=== PATIENT | male | born 1940 | race Caucasian/White ===

== ENCOUNTER → 2019-05-12 13:27 | Outpatient (CLI) | payer OTHER ==
[~2019-05-12 13:27] MED LIST: FLOMAX0.4 MG PO
[2019-05-16 09:56] VITALS: BMI 22.7
== END | disposition home or self-care (01) ==
LOC: D.LAB 13:27
PROVIDERS: ATTEND Urology
DX: N20.2 Calculus of kidney with calculus of ureter (principal)

== ENCOUNTER 2019-05-16 09:16 | Outpatient (CLI) | payer OTHER ==
[~2019-05-16] VITALS: Ht 177.8 cm; Wt 71.7 kg
[2019-05-16 09:36] LABS: HEMATOCRIT 44.8 % (42.0-54.0); HEMOGLOBIN 15.2 g/dL (13.5-17.5); MCH 30.6 pg (26.0-34.0); MCHC 33.9 g/dL (31.0-37.0); MCV 90.1 fL (80.0-100.0); MEAN PLATELET VOLUME 11.8 fL (7.4-10.4); RBC 4.97 10x6/uL (4.20-6.10); RDW 12.8 % (11.5-14.5); WBC 7.5 10x3/uL (4.8-10.8)
[2019-05-16 09:56] VITALS: Ht 177.8 cm; Wt 71.7 kg
--- NOTE | 2019-05-16 11:53 | NUR ---
1145 RETURNED TO 2502 KUB REVEALED NO STONE. CASE CANCELLED RETURNED TO ROOM AT SIDE. FL DIET SERVED.
--- NOTE | 2019-05-16 11:59 | NUR ---
1155 PT. CALLED ME TO THE ROOM AND STATES I NOW HAVE PAIN ON THAT LEFT SIDE RATED 06/09. PT. ATE 100% FL DIET. I ENCOURAGED TO DRINK FLUIDS AND MOVE IV RATE INCREASED. PT. TO CALL IF PAIN PERSISTS.
--- NOTE | 2019-05-16 12:29 | NUR ---
1225 UP TO BR VOIDS AND HAS A BM. RETURNS TO BED. WISHES TO REST.
== END 2019-05-16 12:53 | disposition home or self-care (01) ==
LOC: D.OPS 09:16 → D.PAN 11:45 → EDSTATUS 12:15 → D.OPS 12:15 → D.PAN 12:15 → D.OPS 12:53
PROVIDERS: Anesthesiology; ATTEND Urology
DX: N20.1 Calculus of ureter (principal)

== ENCOUNTER → 2020-03-06 20:12 | Outpatient (CLI) | payer OTHER ==
[2019-05-16 09:56] VITALS: BMI 22.7
== END | disposition home or self-care (01) ==
LOC: D.LABREF 20:12
PROVIDERS: ATTEND Urology
DX: N39.0 Urinary tract infection, site not specified (principal)